=== PATIENT | male | born 1950 | race Hispanic/Latino ===

== ENCOUNTER 2016-12-11 09:03 | Observation (INO) | payer OTHER, MEDICAID ==
[2016-12-11 09:23] VITALS: BMI 26.6
[2016-12-11 10:19] LABS: BASO # 0.03 K/mm3 (0.0-2.0); BASO % 0.5 % (0.0-3.0); EOS # 0.2 (0.0-0.7); EOS % 3.7 % (1.5-5.0); GRAN # 3.05 (1.4-6.5); GRAN % 49.2 % (50.0-68.0); HEMOGLOBIN 14.3 gm/dL (14.0-18.0); LYMPH # 2.3 (1.2-3.4); LYMPH % 37.1 % (22.0-35.0); MEAN CELL VOLUME 96.5 fL (80.0-105.0); MEAN CORPUSCULAR HEMOGLOBIN 33.3 pg (25.0-35.0); MEAN CORPUSCULAR HGB CONC 34.5 g/dl (31.0-37.0); MEAN PLATELET VOLUME 9.9 fl (7.0-11.0); MONO # 0.6 (0.1-0.6); MONO % 9.5 % (1.0-6.0); PLATELET COUNT 170 10^3/uL (120.0-450.0); RED CELL DISTRIBUTION WIDTH 13.2 % (11.5-14.5); WHITE BLOOD COUNT 6.2 10^3/ul (4.5-11.0)
[2016-12-11 10:29] LABS: INR 1.04 (0.93-1.08); PARTIAL THROMBOPLASTIN TIME 29.2 Seconds (23.7-30.8); PROTHROMBIN TIME 11.2 Seconds (9.9-11.8)
[2016-12-11 10:29] LABS: ALB/GLOB RATIO 1.3 (1.1-1.8); ALBUMIN 4.2 g/dL (3.0-4.8); ALT/SGPT 40 U/L (7-56); AST/SGOT 31 U/L (15-59); BLOOD UREA NITROGEN 13 mg/dL (7-21); CALCIUM 8.8 mg/dL (8.4-10.5); GFR AFRICAN-AMERICAN > 60; GFR NON-AFRICAN AMERICAN > 60; LIPASE 76 U/L (23-300)
--- NOTE | 2016-12-11 10:55 | RAD ---
HISTORY: gi bleed COMPARISON: 10/18/2015 FINDINGS: LUNGS: No active pulmonary disease. PLEURA: No significant pleural effusion identified, no pneumothorax apparent. CARDIOVASCULAR: Normal. OSSEOUS STRUCTURES: No significant abnormalities. VISUALIZED UPPER ABDOMEN: Normal. OTHER FINDINGS: None. IMPRESSION: No active disease.
--- NOTE | 2016-12-11 11:53 | ED PDOC ---
Arrival/HPI - General Chief Complaint: GI Problem Time Seen by Provider: 12/11/16 09:56 Historian: Patient - History of Present Illness Narrative History of Present Illness (Text): 12/11/16 10:00 A 66 year old male, whose past medical history includes subdural hematoma, presents to the emergency department complaining of rectal bleeding. Patient reports he woke up about 6 hours ago in a puddle of liquid blood, which lasted for two more hours. Patient reports he saw PMD a week ago. Notes some lightheadedness but denies any chest pain, shortness of breath, headache, vision changes, abdominal pain or any other complaints at this time. PMD: Leila Symptom Onset: Sudden Symptom Course: Unchanged Activities at Onset: Rest Context: Home Past Medical History - Provider Review Nursing Documentation Reviewed: Yes - Infectious Disease Hx of Infectious Diseases: None - Cardiac Hx Hypertension: Yes - Pulmonary Hx Chronic Obstructive Pulmonary Disease (COPD): No - Neurological HX Cerebrovascular Accident: Yes Other/Comment: brain hemmorhage - HEENT Hx HEENT Disorder: No Hx Blind: No Hx Cataracts: Yes (bilateral removed) Hx Deafness: No Hx Difficulty Chewing: No Hx Epistaxis: No Hx Glaucoma: No Hx Macular Degeneration: No - Renal Hx Renal Failure: No - Endocrine/Metabolic Hx Diabetes Mellitus Type 1: No Hx Diabetes Mellitus Type 2: Yes Hx Hypothyroidism: No - Hematological/Oncological Hx Blood Disorders: No Hx AIDS: No Hx Anemia: No Hx Cancer: No Hx Chemotherapy: No Hx Cirrhosis: No Hx Hemophilia: No Hx Hepatitis A: No Hx Hepatitis B: No Hx Hepatitis C: No Hx Metastasis: No Hx Shingles: No Hx Sickle Cell Disease: No Hx Unexplained Bleeding: No - Integumentary Hx Dermatological Disorder: No Hx Basal Cell Carcinoma: No Hx Eczema: No Hx Melanoma: No Hx Psoriasis: No Hx Squamous Cell Carcinoma: No - Musculoskeletal/Rheumatological Hx Arthritis: No - Gastrointestinal Hx Gastrointestinal Disorders: No Hx Colostomy: No Hx Crohn's Disease: No Hx Diverticulitis: No Hx Gall Bladder Disease: No Hx Gastroesophageal Reflux: No Hx Gastrointestinal Ulcer: No Hx Ileostomy: No Hx Liver Failure: No Hx Pancreatitis: No HX Swallowing Problems: No - Genitourinary/Gynecological Hx Genitourinary Disorders: No Hx Hematuria: No Hx Incontinence: No Hx Prostate Problems: No Hx Sexually Transmitted Diseases: No Hx Urinary Tract Infection: No - Psychiatric Hx Psychophysiologic Disorder: No Hx Anxiety: Yes Hx Bipolar Disorder: No Hx Depression: No Hx Emotional Abuse: No Hx Hallucinations: No Hx Panic Disorder: No Hx Post Traumatic Stress Disorder: No Hx Psychosis: No Hx Physical Abuse: No Hx Schizophrenia: No Hx Sexual Abuse: No Hx Substance Use: No - Surgical History Hx Amputation: No Hx Appendectomy: No Hx Cardiac Catheterization: No Hx Cholecystectomy: No Hx Coronary Stent: No Hx Gastric Bypass Surgery: No Hx Hysterectomy: No Hx Joint Replacement: No Hx Kidney Transplant: No Hx Liver Transplant: No Hx Mastectomy: No Hx Musculoskeletal Surgery: Yes (right hand due to accident) Hx Open Heart Surgery: No Hx Orthopedic Surgery: Yes Hx Splenectomy: No Hx Valve Replacement: No Other/Comment: surgery for brain hemmorhage - Anesthesia Hx Anesthesia: Yes Hx Anesthesia Reactions: No Hx Malignant Hyperthermia: No - Suicidal Assessment Feels Threatened In Home Enviroment: No Family/Social History - Physician Review Nursing Documentation Reviewed: Yes Family/Social History: No Known Family HX Smoking Status: Heavy Smoker > 10 Cigarettes Daily Hx Alcohol Use: Yes (2/3 times week; 12 cans beer) Hx Substance Use: No Allergies/Home Meds Allergies/Adverse Reactions: Allergies No Known Allergies Allergy (Verified 12/11/16 09:22) Home Medications: Home Meds Medication Instructions Recorded Confirmed Amlodipine Besylate [Norvasc] 10 mg PO DAILY 07/14/15 12/11/16 Aspirin [Ecotrin] 81 mg PO DAILY 07/14/15 12/11/16 Enalapril Maleate 10 mg PO BID 07/14/15 12/11/16 Gabapentin [Neurontin] 600 mg PO TID 07/14/15 12/11/16 Meclizine [Meclizine*] 25 mg PO TID 07/14/15 12/11/16 traMADol [Ultram] 50 mg PO PRN PRN 07/14/15 12/11/16 Review of Systems - Physician Review All systems were reviewed & negative as marked: Yes - Review of Systems Constitutional: Other (lightheadedness) Eyes: absent: Vision Changes Respiratory: absent: SOB Cardiovascular: absent: Chest Pain Gastrointestinal: absent: Abdominal Pain Genitourinary Male: Other (Rectal bleeding) Neurological: absent: Headache Physical Exam - Physical Exam Narrative Physical Exam (Text): 12/11/16 11:53 Constitutional: No acute distress. Head: Normocephalic. Atraumatic. Well healed craniotomy scar R parietal, and L parietal, no erythema Eyes: PERRL. ENT: Moist mucous membranes. Neck: Supple. Cardiovascular: Regular rate. Chest: No tenderness. Respiratory: Clear to auscultation bilaterally. GI: Soft. Nontender. Nondistended. Back: No CVA tenderness. Musculoskeletal: No tenderness or swelling of extremities. Skin: No rash. Neurologic: Alert, no focal deficit. Rectal: external hemorrhoids, no active bleeding, no stool or gross blood on digital rectal exam, but guaiac still positive and dried blood in underwear. Vital Signs Reviewed: Yes Vital Signs Temp Pulse Resp BP Pulse Ox 12/11/16 11:46 76 18 157/75 H 98 12/11/16 10:53 82 143/87 12/11/16 09:17 98.7 F 79 18 183/92 H 98 Temperature: Afebrile Blood Pressure: Hypertensive Pulse: Regular Respiratory Rate: Normal Appearance: Positive for: Well-Appearing, Non-Toxic, Comfortable Pain Distress: None Mental Status: Positive for: Alert and Oriented X 3 Medical Decision Making ED Course and Treatment: 12/11/16 11:46 Impression: A 66 year old male with rectal bleeding. Plan: -- EKG -- chest xray -- labs -- Urinalysis -- Reassess and disposition Progress Notes: EKG: Ordered, reviewed, and independently interpreted the EKG. Rate : 80 BPM Rhythm : NSR Interpretation : No ST/T wave changes chest xray: Creator : Curt Solares MD 12/11/16 10:57 IMPRESSION: No active disease. Dr. Walker accepts patient to her service. Notified Dr. Rosado for GI consultation. Patient stable during ER stay, with significant rectal bleeding this morning, requires admission for further evaluation of bleeding source, close monitoring for acute blood loss. - Lab Interpretations Lab Results: 12/11/16 10:00 12/11/16 09:49 Lab Results 12/11/16 11:45: Urine Color Yellow, Urine Appearance Clear, Urine pH 6.0, Ur Specific [place] 1.025, Urine Protein Negative, Urine Glucose (UA) Negative, Urine Ketones Negative, Urine Blood Trace-intact H, Urine Nitrate Negative, Urine Bilirubin Negative, Urine Urobilinogen 0.2, Ur Leukocyte Esterase Negative , Urine RBC 1 - 3, Urine WBC 0 - 2, Ur Epithelial Cells 0 - 2 12/11/16 10:15: Blood Type O POSITIVE, Antibody Screen Negative, BBK History Checked Patient has bt 12/11/16 10:00: PT 11.2, INR 1.04, APTT 29.2 12/11/16 10:00: WBC 6.2, RBC 4.30, Hgb 14.3, Hct 41.5 L, MCV 96.5, MCH 33.3, MCHC 34.5, RDW 13.2, Plt Count 170, MPV 9.9, Gran % 49.2 L, Lymph % (Auto) 37.1 H, [place] % (Auto) 9.5 H, Eos % (Auto) 3.7, Baso % (Auto) 0.5, Gran # 3.05, Lymph # 2.3, [place] # 0.6, Eos # 0.2, Baso # 0.03 12/11/16 09:49: Sodium 139, Potassium 3.8, Chloride 105, Carbon Dioxide 22, Anion Gap 16, BUN 13, Creatinine 1.1, Est GFR ( Amer) > 60, Est GFR (Non- Af Amer) > 60, Random Glucose 101, Calcium 8.8, Total Bilirubin 0.6, AST 31, ALT 40, Alkaline Phosphatase 63, Total Protein 7.6, Albumin 4.2, Globulin 3.3, Albumin/Globulin Ratio 1.3, Lipase 76 I have reviewed the lab results: Yes - RAD Interpretation Radiology Orders: 12/11/16 10:08 CHEST PORTABLE [RAD] Stat - EKG Interpretation Interpreted by ED Physician: Yes Type: 12 lead EKG - Medication Orders Current Medication Orders: Discontinued Medications Lisinopril (Zestril) 20 mg PO STAT STA Stop: 12/11/16 10:50 Last Admin: 12/11/16 10:53 Dose: 20 mg - Scribe Statement The provider has reviewed the documentation as recorded by the [place] Provider Scribe Attestation: All medical record entries made by the [place] were at my direction and personally dictated by me. I have reviewed the chart and agree that the record accurately reflects my personal performance of the history, physical exam, medical decision making, and the department course for this patient. I have also personally directed, reviewed, and agree with the discharge instructions and disposition. Disposition/Present on Arrival - Present on Arrival Any Indicators Present on Arrival: No History of DVT/PE: No History of Uncontrolled Diabetes: No Urinary Catheter: No History of Decub. Ulcer: No History Surgical Site Infection Following: None - Disposition Have Diagnosis and Disposition been Completed?: Yes Diagnosis: GI bleed Disposition: HOSPITALIZED Disposition Time: 10:37 Patient Plan: Admission Condition: FAIR Referrals: Awa Dee MD [Primary Care Provider] - Follow up with primary
[2016-12-11 12:26] LABS: URINE BILIRUBIN NEGATIVE (NEGATIVE); URINE BLOOD TRACE-INTACT (NEGATIVE); URINE GLUCOSE (UA) NEGATIVE (NEGATIVE); URINE LEUKOCYTE ESTERASE NEGATIVE Leu/uL (NEGATIVE); URINE NITRATE NEGATIVE (NEGATIVE); URINE PROTEIN NEGATIVE mg/dL (<30 mg/dL); URINE UROBILINOGEN 0.2 E.U./dL (<1 E.U./dL)
[2016-12-11 12:42] LABS: URINE APPEARANCE CLEAR (CLEAR); URINE COLOR YELLOW (YELLOW)
[2016-12-11 12:45] LABS: URINE EPITHELIAL CELLS 0 - 2 /hpf (0-5); URINE WBC 0 - 2 /hpf (0-6)
[2016-12-11] MEDS ORDERED: Naloxone 0.4 mg/ml Inj (Adult) ONE (14:03)
--- NOTE | 2016-12-11 14:48 | CP.PCM.CON ---
<Lizet Eldridge - Last Filed: 12/11/16 14:57> History of Present Illness - History of Present Illness History of Present Illness: S&E in the ER, chart reviewed. Request for consult is for rectal bleeding. HPI: This is a 66 year old male with a history if subdural hematoma iw/ cranial surgery, HTN, CVA, colon polyps and PUD, come to the ER w/ complaints of blood per rectum, patient states that he woke up in a puddle of blood while in bed. He denies abdominal pain, no N/V, but felt lightheadedness. No SOB or chest [ pain. He does get acid reflux on occasion but depend on diet as well. He takes daily aspirin. Denies other NSAID use. He does admit to drinking 8-10 cans of beer [id number], he used to drink more scotch and water. His last EGD/ colon was 07/[address] Choe and found to have ulcer in the stomach, esophagus and duodenum. His gastric biopsy does show intestinal metaplasia, no HP, colon polyps was tubular adenoma. No c/o dysphasia or weight loss. PMH: Osteoarthritis, takes Tramadol,DM,HTN,CVA,peripheral neuropathy. subdural hematoma PSH: cranial surgery at 12 y.o, cataract surgery bilat FHX: noncontributory at this time Allergies: NKDA Social HX: beer 8-10 every other day, (+) smoke, denies drugs MEDS: reviewed as oer MAR ROS: systems reviewed with positive findings Past Patient History - Infectious Disease Hx of Infectious Diseases: None - Past Social History Smoking Status: Heavy Smoker > 10 Cigarettes Daily - CARDIAC Hx Hypertension: Yes - PULMONARY Hx Chronic Obstructive Pulmonary Disease (COPD): No - NEUROLOGICAL HX Cerebrovascular Accident: Yes Other/Comment: brain hemmorhage - HEENT Hx HEENT Problems: No Hx Blind: No Hx Cataracts: Yes (bilateral removed) Hx Deafness: No Hx Difficulty Chewing: No Hx Epistaxis: No Hx Glaucoma: No Hx Macular Degeneration: No - RENAL Hx Renal Failure: No - ENDOCRINE/METABOLIC Hx Diabetes Mellitus Type 1: No Hx Diabetes Mellitus Type 2: Yes Hx Hypothyroidism: No - HEMATOLOGICAL/ONCOLOGICAL Hx Blood Disorders: No Hx AIDS: No Hx Anemia: No Hx Cancer: No Hx Chemotherapy: No Hx Cirrhosis: No Hx Hemophilia: No Hx Hepatitis A: No Hx Hepatitis B: No Hx Hepatitis C: No Hx Metastesis: No Hx Shingles: No Hx Sickle Cell Disease: No Hx Unexplained Bleeding: No - INTEGUMENTARY Hx Dermatological Problems: No Hx Basil Cell: No Hx Eczema: No Hx Melanoma: No Hx Psoriasis: No Hx Squamous Cell: No - MUSCULOSKELETAL/RHEUMATOLOGICAL Hx Arthritis: No - GASTROINTESTINAL Hx Gastrointestinal Disorders: No Hx Colostomy: No Hx Crohn's Disease: No Hx Diverticulitis: No Hx Gall Bladder Disease: No Hx Gastroesophageal Reflux: No Hx Ileostomy: No Hx Liver Failure: No Hx Pancreatitis: No HX Swallowing Problems: No - GENITOURINARY/GYNECOLOGICAL Hx Genitourinary Disorders: No Hx Hematuria: No Hx Incontinence: No Hx Prostate Problems: No Hx Sexually Transmitted Disorders: No Hx Urinary Tract Infection: No - PSYCHIATRIC Hx Psychophysiologic Disorder: No Hx Anxiety: Yes Hx Bipolar Disorder: No Hx Depression: No Hx Emotional Abuse: No Hx Hallucinations: No Hx Panic Symptoms: No Hx Post Traumatic Stress Disorder: No Hx Psychosis: No Hx Physical Abuse: No Hx Schizophrenia: No Hx Sexual Abuse: No Hx Substance Use: No - SURGICAL HISTORY Hx Amputation: No Hx Appendectomy: No Hx Cardiac Catheterization: No Hx Cholecystectomy: No Hx Coronary Stent: No Hx Gastric Bypass Surgery: No Hx Hysterectomy: No Hx Joint Replacement: No Hx Kidney Transplant: No Hx Liver Transplant: No Hx Mastectomy: No Hx Musculoskeletal Surgery: Yes (right hand due to accident) Hx Open Heart Surgery: No Hx Orthopedic Surgery: Yes Hx Splenectomy: No Hx Valve Replacement: No Other/Comment: surgery for brain hemmorhage - ANESTHESIA Hx Anesthesia: Yes Hx Anesthesia Reactions: No Hx Malignant Hyperthermia: No Meds Allergies/Adverse Reactions: Allergies Allergy/AdvReac Type Severity Reaction Status Date / Time No Known Allergies Allergy Verified 12/11/16 09:22 - Medications Medications: Current Medications Polyethylene Glycol/Electrolytes (Golytely) 4,000 ml PO ONCE ONE Stop: 12/11/16 16:01 Physical Exam - Constitutional Appears: No Acute Distress - Head Exam Head Exam: NORMAL INSPECTION - Eye Exam Eye Exam: Normal appearance, PERRL. absent: Scleral icterus - ENT Exam ENT Exam: Mucous Membranes Moist - Neck Exam Neck exam: Positive for: Normal Inspection - Respiratory Exam Respiratory Exam: Clear to Auscultation Bilateral, NORMAL BREATHING PATTERN. absent: Respiratory Distress - Cardiovascular Exam Cardiovascular Exam: +S1, +S2 - GI/Abdominal Exam GI & Abdominal Exam: Normal Bowel Sounds, Soft. absent: Guarding, Rebound, Tenderness - Extremities Exam Extremities exam: Positive for: pedal pulses present. Negative for: calf tenderness, pedal edema - Neurological Exam Neurological exam: Alert, Oriented x3 - Skin Skin Exam: Dry, Warm Results - Vital Signs Recent Vital Signs: Last Vital Signs Temp 98.7 F 12/11/16 09:17 Pulse 78 12/11/16 14:17 Resp 19 12/11/16 14:17 BP 160/80 H 12/11/16 14:17 Pulse Ox 99 12/11/16 14:17 - Labs Result Diagrams: 12/11/16 10:00 12/11/16 09:49 Labs: Laboratory Results - last 24 hr 12/11/16 11:45 Urine Color Yellow Urine Appearance Clear Urine pH 6.0 Ur Specific [place] 1.025 Urine Protein Negative Urine Glucose (UA) Negative Urine Ketones Negative Urine Blood Trace-intact H Urine Nitrate Negative Urine Bilirubin Negative Urine Urobilinogen 0.2 Ur Leukocyte Esterase Negative Urine RBC 1 - 3 Urine WBC 0 - 2 Ur Epithelial Cells 0 - 2 Assessment & Plan - Assessment and Plan (Free Text) Assessment: ASSESSMENT: GI Bleed, R/O PUD, angiodysplasia, malignancy, diverticular bleed H/O PUD Chronic Alcohol use HTN DM H/O Colon polyps Gastric Intestinal metaplasia H/O Subdural hematoma w/cranial surgery PLAN: clear liquid start Protonix 40 mg IVP monitor H/H, for overt GIB plan for egd/colon 12/12/16 Golytle prep at 4 pm, see orders NPO 12 midnight except for meds labs in the am, bmp, cbc Thank you for this consult and for allowing us to participate in your patient care, will make further recommendations based upon clinical course. Seen and discussed with Dr. Rosado. <Jaguar Rosado V - Last Filed: 12/12/16 00:00> Meds - Medications Medications: Current Medications Amlodipine Besylate (Norvasc) 10 mg PO DAILY DOMINGO Bisacodyl (Dulcolax) 10 mg PO ONCE ONE Stop: 12/12/16 06:01 Gabapentin (Neurontin) 600 mg PO BID DOMINGO PRN Reason: Protocol Last Admin: 12/11/16 21:31 Dose: 600 mg Magnesium Citrate (Citrate Of Mag) 300 ml PO ONCE ONE Stop: 12/12/16 06:01 Nicotine (Nicoderm Cq) 1 patch TD DAILY DOMINGO Pantoprazole Sodium (Protonix Inj) 40 mg IVP DAILY DOMINGO Last Admin: 12/11/16 17:38 Dose: 40 mg Zolpidem Tartrate (Ambien) 5 mg PO HS PRN; Protocol PRN Reason: Insomnia Results - Vital Signs Recent Vital Signs: Last Vital Signs Temp 98.5 F 12/11/16 17:11 Pulse 67 12/11/16 20:22 Resp 20 12/11/16 17:11 BP 156/81 H 12/11/16 20:22 Pulse Ox 97 12/11/16 16:00 - Labs Result Diagrams: 12/11/16 16:45 12/11/16 09:49 Labs: Laboratory Results - last 24 hr 12/11/16 12/11/16 11:45 16:45 WBC 6.2 RBC 4.28 Hgb 14.0 Hct 41.3 L MCV 96.5 MCH 32.7 MCHC 33.9 RDW 13.0 Plt Count 169 MPV 10.1 Urine Color Yellow Urine Appearance Clear Urine pH 6.0 Ur Specific [place] 1.025 Urine Protein Negative Urine Glucose (UA) Negative Urine Ketones Negative Urine Blood Trace-intact H Urine Nitrate Negative Urine Bilirubin Negative Urine Urobilinogen 0.2 Ur Leukocyte Esterase Negative Urine RBC 1 - 3 Urine WBC 0 - 2 Ur Epithelial Cells 0 - 2 Attending/Attestation - Attestation I have personally seen and examined this patient.: Yes I have fully participated in the care of the patient.: Yes I have reviewed all pertinent clinical information: Yes Notes (Text): 12/12/16 00:00 this
[2016-12-11] MEDS ORDERED: Peg-Electrolyte Oral Soln 4L (Golytely) PO ONE (16:00)
[2016-12-11 17:00] LABS: MEAN CELL VOLUME 96.5 fL (80.0-105.0); MEAN CORPUSCULAR HEMOGLOBIN 32.7 pg (25.0-35.0); MEAN CORPUSCULAR HGB CONC 33.9 g/dl (31.0-37.0); MEAN PLATELET VOLUME 10.1 fl (7.0-11.0); RBC 4.28 10^6/uL (3.5-6.1); WHITE BLOOD COUNT 6.2 10^3/ul (4.5-11.0)
--- NOTE | 2016-12-11 17:37 | CARD ---
APPROVED REPORT EKG Measurement Heart [id number] <Conclusion> Normal sinus rhythm Moderate voltage criteria for LVH, may be normal variant Borderline ECG
[2016-12-11] MEDS ORDERED: Magnesium Citrate Oral SOL (300 ml) PO ONE (18:05)
[2016-12-11] MEDS ORDERED: Bisacodyl 5mg EC Tab PO ONE (18:05)
--- NOTE | 2016-12-11 22:44 | CP.PCM.HP ---
History of Present Illness - History of Present Illness History of Present Illness: 66 yo male with history of hypertension, COPD, history of subdural hematoma presented to ER with complaint of sudden onset of painless rectal bleeding. The patient states that woke up in pool of blood coming from anal area. He denied abdominal pain, diarrhea, constipation, nausea or vomiting. He has history of colon polyps , last colonoscopy in 2016. He takes ASA 81 mg daily. Present on Admission - Present on Admission Any Indicators Present on Admission: No History of DVT/PE: No History of Uncontrolled Diabetes: No Urinary Catheter: No Decubitus Ulcer Present: No Review of Systems - Constitutional Constitutional: absent: As Per HPI, Anorexia, Chills, Daytime Sleepiness, Excessive Sweating, Fatigue, Fever, Frequent Falls, Headache, Increased Appetite , Lethargy, Malaise, Night Sweats, Snoring, Sleep Apnea, Weight Gain, Weight Loss, Weakness, Other - EENT Eyes: Requires Corrective Lenses. absent: As Per HPI, Blind Spots, Blurred Vision, Change in Vision, Decreased Night Vision, Diplopia, Discharge, Dry Eye, Exophthalmos, Floaters, Irritation, Itchy Eyes, Loss of Peripheral Vision, Pain , Photophobia, Sees Flashes, Spots in Vision, Tunnel Vision, Other Visual Disturbances, Loss of Vision, Other Ears: Decreased Hearing, Dizziness Nose/Mouth/Throat: absent: As Per HPI, Epistaxis, Nasal Congestion, Nasal Discharge, Nasal Obstruction, Nasal Trauma, Nose Pain, Post Nasal Drip, Sinus Pain, Sinus Pressure, Bleeding Gums, Change in Voice, Dental Pain, Dry Mouth, Dysphagia, Halitosis, Hoarsness, Lip Swelling, Mouth Lesions, Mouth Pain, Odynophagia, Sore Throat, Throat Swelling, Tongue Swelling, Facial Pain, Neck Pain, Neck Mass, Other - Cardiovascular Cardiovascular: absent: As Per HPI, Acrocyanosis, Chest Pain, Chest Pain at Rest , Chest Pain with Activity, Claudication, Diaphoresis, Dyspnea, Dyspnea on Exertion, Edema, Irregular Heart Rhythm, Pain Radiating to Arm/Neck/Jaw, Leg Edema, Leg Ulcers, Lightheadedness, Orthopnea, Palpitations, Paroxysmal Nocturnal Dyspnea, Pedal Edema, Radiating Pain, Rapid Heart Rate, Slow Heart Rate, Syncope, Other - Respiratory Respiratory: Cough, Dyspnea on Exertion. absent: As Per HPI, Dyspnea, Hemoptysis, Wheezing, Snoring, Stridor, Pain on Inspiration, Chest Congestion, Excessive Mucous Production, Change in Mucous Color, Pain with Coughing, Other - Gastrointestinal Gastrointestinal: absent: As Per HPI, Abdominal Pain, Belching, Bloating, Change in Bowel Habits, Change in Stool Character, Coffee Ground Emesis, Constipation, Cramping, Diarrhea, Dyspepsia, Dysphagia, Early Satiety, Excessive Flatus, Fecal Incontinence, Heartburn, Hematemesis, Hematochezia, Loose Stools, Melena, Nausea, Odynophagia, Temesmus, Vomiting, Other - Genitourinary Genitourinary: absent: As Per HPI, Change in Urinary Stream, Difficulty Urinating, Dysuria, Flank Pain, Hematuria, Pyuria, Nocturia, Urinary Incontinence, Urinary Frequency, Urinary Hesitance, Urinary Urgency, Voiding Freq/Small Amts, Freq UTI, Hx Renal/Bladder Calculi, Hx /Renal Surgery, Bladder Distension, Other - Musculoskeletal Musculoskeletal: Arthralgias, Muscle Cramps, Numbness, Tingling. absent: As Per HPI, Abnormal Gait, Atrophy, Back Pain, Deformity, Joint Swelling, Limited Range of Motion, Loss of Height, Muscle Weakness, Myalgias, Neck Pain, Radiating Pain into Limb, Stiffness, Other - Integumentary Integumentary: absent: As Per HPI, Acne, Alopecia, Bleeding Lesions, Change in Hair, Change in Nails, Change in Pigmentation, Changing Lesions, Dry Skin, Erythema, Furuncle, Hirsutism, Lesions, New Lesions, Non-Healing Lesions, Photosensitivity, Pruritus, Rash, Skin Pain, Skin Ulcer, Sores, Striae, Swelling , Unusual Bruising, Wounds, Jaundice, Other - Neurological Neurological: Dizziness, Numbness, Restless Legs, Vertigo. absent: As Per HPI, Abnormal Gait, Abnormal Hearing, Abnormal Movements, Abnormal Speech, Behavioral Changes, Burning Sensations, Confusion, Convulsions, Disequilibrium, Focal Weakness, Frequent Falls, Headaches, Lack of Coordination, Loss of Vision , Memory Loss, Paresthesias, Radicular Pain, Sensory Deficit, Syncope, Tingling , Tremor, Weakness, Other Visual Disturbances, Other - Psychiatric Psychiatric: absent: As Per HPI, Abnormal Sleep Pattern, Anhedonia, Anxiety, Auditory Hallucinations, Behavioral Changes, Change in Appetite, Change in Libido, Confusion, Depression, Difficulty Concentrating, Hallucinations, Homicidal Ideation, Hopelessness, Irritability, Memory Loss, Mood Swings, Panic Attacks, Paranoia, Suicidal Ideation, Visual Hallucinations, Tactile Hallucinations, Other - Endocrine Endocrine: absent: As Per HPI, Change in Body Appearance, Change in Libido, Cold Intolorance, Deepening of Voice, Excessive Sweating, Fatigue, Flushing, Heat Intolorance, Increase in Ring/Shoe/Hat Size, Palpitations, Polydipsia, Polyphagia, Polyuria, Other - Hematologic/Lymphatic Hematologic: absent: As Per HPI, Easy Bleeding, Easy Bruising, Lymphadenopathy, Other Past Patient History - Infectious Disease Hx of Infectious Diseases: None - Tetanus Immunizations Tetanus Immunization: Unknown - Past Medical History & Family History Past Medical History?: Yes - Past Social History Smoking Status: Heavy Smoker > 10 Cigarettes Daily Chewing Tobacco Use: No Cigar Use: No Occupation: retired Alcohol: < 2 Drinks/Day Drugs: Denies Home Situation {Lives}: With Family - CARDIAC Hx Cardiac Disorders: No Hx Angina: No Hx Atrial Fibrillation: No Hx Cardia Arrhythmia: No Hx Circulatory Problems: No Hx Congestive Heart Failure: No Hx Heart Attack: No Hx Heart Murmur: No Hx Heart Transplant: No Hx Hypercholesterolemia: Yes Hx Hypertension: Yes Hx Hypotension: No Hx Internal Defibrillator: No Hx Mitral Valve Prolapse: No Hx Pacemaker: No Hx Peripheral Edema: No Hx Peripheral Vascular Disease: No - PULMONARY Hx Respiratory Disorders: Yes Hx Asthma: No Hx Bronchitis: No Hx Chronic Obstructive Pulmonary Disease (COPD): Yes Hx Emphysema: Yes Hx Lung Cancer: No Hx Pneumonia: No Hx Pulmonary Edema: No Hx Pulmonary Embolism: No Hx Respiratory Aspiration: No Hx Respiratory Tract Infection: No Hx Sleep Apnea: No Hx Tuberculosis: No - NEUROLOGICAL Hx Alzheimer's Disease: No HX Cerebrovascular Accident: Yes Hx Dementia: No Hx Dizziness: Yes Hx Meningitis: No Hx Migraine: No Hx Multiple Sclerosis: No Hx Paralysis: No Hx Parkinson's Disease: No Hx Seizures: No Hx Syncope: No Hx Transient Ischemic Attacks (TIA): No Hx Vertigo: Yes Other/Comment: brain hemmorhage - HEENT Hx HEENT Problems: No Hx Blind: No Hx Cataracts: Yes (bilateral removed) Hx Deafness: No Hx Difficulty Chewing: No Hx Epistaxis: No Hx Glaucoma: No Hx Macular Degeneration: No Hx Sinusitis: No - RENAL Hx Chronic Kidney Disease: No Hx Dialysis: No Hx Kidney Stones: No Hx Renal Failure: No - ENDOCRINE/METABOLIC Hx Diabetes Mellitus Type 2: Yes (Borderline) - HEMATOLOGICAL/ONCOLOGICAL Hx Blood Disorders: No Hx AIDS: No Hx Anemia: No Hx Cancer: No Hx Chemotherapy: No Hx Cirrhosis: No Hx Hemophilia: No Hx Hepatitis A: No Hx Hepatitis B: No Hx Hepatitis C: No Hx Metastesis: No Hx Shingles: No Hx Sickle Cell Disease: No Hx Unexplained Bleeding: No - INTEGUMENTARY Hx Dermatological Problems: No Hx Basil Cell: No Hx Eczema: No Hx Melanoma: No Hx Psoriasis: No Hx Squamous Cell: No - MUSCULOSKELETAL/RHEUMATOLOGICAL Hx Back Pain: Yes Hx Degenerative Joint Disease: Yes Hx Falls: No Hx Gout: No Hx Herniated Disk: No Hx Myasthenia Gravis: No Hx Osteoarthritis: No Hx Osteomyelitis: No Hx Osteoporosis: No Hx Rhabdomyolysis: No Hx Rheumatoid Arthritis: No Hx Spinal Stenosis: No Hx Unsteady Gait: No - GASTROINTESTINAL Hx Gastrointestinal Disorders: No Hx Clostridium Difficile: No Hx Colitis: No Hx Colostomy: No Hx Constipation: No Hx Crohn's Disease: No Hx Diverticulitis: No Hx Gall Bladder Disease: No Hx Gastroesophageal Reflux: No Hx Hemorrhoids: Yes Hx Ileostomy: No Hx Irritable Bowel: No Hx Liver Failure: No Hx Pancreatitis: No HX Swallowing Problems: No Hx Ulcer: Yes Hx Vomiting: No - GENITOURINARY/GYNECOLOGICAL Hx Genitourinary Disorders: No Hx Hematuria: No Hx Incontinence: No Hx Prostate Problems: No Hx Sexually Transmitted Disorders: No Hx Urinary Tract Infection: No - PSYCHIATRIC Hx Anxiety: Yes Hx Substance Use: No - SURGICAL HISTORY Hx Surgeries: Yes Hx Musculoskeletal Surgery: Yes (right hand due to accident) Hx Orthopedic Surgery: Yes Other/Comment: surgery for brain hemmorhage, metal plate in skull - ANESTHESIA Hx Anesthesia: Yes Hx Anesthesia Reactions: No Hx Malignant Hyperthermia: No Meds Allergies/Adverse Reactions: Allergies Allergy/AdvReac Type Severity Reaction Status Date / Time No Known Allergies Allergy Verified 12/11/16 09:22 Physical Exam - Constitutional Appears: No Acute Distress - Head Exam Head Exam: ATRAUMATIC, NORMOCEPHALIC - Eye Exam Eye Exam: Normal appearance Pupil Exam: NORMAL ACCOMODATION, PERRL - ENT Exam ENT Exam: Mucous Membranes Moist, Normal Exam - Neck Exam Neck exam: Positive for: Full Rom, Normal Inspection. Negative for: Lymphadenopathy, Meningismus, Tenderness, Thyromegaly - Respiratory Exam Respiratory Exam: Clear to Auscultation Bilateral, NORMAL BREATHING PATTERN. absent: Accessory Muscle Use, Chest Wall Tenderness, Decreased Breath Sounds, Prolonged Expiratory Phase, Rales, Rhonchi, Wheezes, Respiratory Distress, Stridor - Cardiovascular Exam Cardiovascular Exam: REGULAR RHYTHM. absent: Bradycardia, Tachycardia, Clicks, Diastolic murmur, Gallop, Irregular Rhythm, JVD, RRR, Rubs, +S1, +S2, +S4, Systolic Murmur - GI/Abdominal Exam GI & Abdominal Exam: Normal Bowel Sounds, Soft. absent: Bruit, Diminished Bowel Sounds, Distended, Firm, Guarding, Hernia, Hyperactive Bowel Sounds, Hypoactive Bowel Sounds, Mass, Organomegaly, Pulsatile Mass, Rebound, Rigid, Tenderness - Rectal Exam Rectal Exam: NORMAL INSPECTION - Extremities Exam Extremities exam: Positive for: full ROM, normal inspection. Negative for: calf tenderness, joint swelling, normal capillary refill, pedal edema, tenderness, pedal pulses present - Neurological Exam Neurological exam: Alert, CN II-XII Intact, Normal Gait, Oriented x3, Reflexes Normal - Psychiatric Exam Psychiatric exam: Normal Affect, Normal Mood Results - Vital Signs Recent Vital Signs: Last Vital Signs Temp 98.5 F 12/11/16 17:11 Pulse 67 12/11/16 20:22 Resp 20 12/11/16 17:11 BP 156/81 H 12/11/16 20:22 Pulse Ox 97 12/11/16 16:00 - Labs Result Diagrams: 12/11/16 16:45 12/11/16 09:49 Labs: Laboratory Results - last 24 hr 12/11/16 12/11/16 11:45 16:45 WBC 6.2 RBC 4.28 Hgb 14.0 Hct 41.3 L MCV 96.5 MCH 32.7 MCHC 33.9 RDW 13.0 Plt Count 169 MPV 10.1 Urine Color Yellow Urine Appearance Clear Urine pH 6.0 Ur Specific Blum 1.025 Urine Protein Negative Urine Glucose (UA) Negative Urine Ketones Negative Urine Blood Trace-intact H Urine Nitrate Negative Urine Bilirubin Negative Urine Urobilinogen 0.2 Ur Leukocyte Esterase Negative Urine RBC 1 - 3 Urine WBC 0 - 2 Ur Epithelial Cells 0 - 2 Assessment & Plan (1) Lower GI bleeding Status: Acute Onset Date: ~12/11/16 (2) Hypertension Status: Chronic - Assessment and Plan (Free Text) Plan: Admit for observation. H/H monitoring. GI evaluation, discussed plans for colonoscopy in AM. Clear liquid diet. Resume chronic antihypertensive medications. - Date & Time Date: 12/11/16 Time: 19:30
[2016-12-12] MEDS ORDERED: Bisacodyl 5mg EC Tab PO ONE (06:00)
[2016-12-12] MEDS ORDERED: Magnesium Citrate Oral SOL (300 ml) PO ONE (06:00)
[2016-12-12 08:17] LABS: HEMOGLOBIN 14.7 gm/dL (14.0-18.0); MEAN CELL VOLUME 96.4 fL (80.0-105.0); MEAN CORPUSCULAR HGB CONC 34.2 g/dl (31.0-37.0); MEAN PLATELET VOLUME 10.2 fl (7.0-11.0); RBC 4.46 10^6/uL (3.5-6.1); RED CELL DISTRIBUTION WIDTH 12.9 % (11.5-14.5); WHITE BLOOD COUNT 6.5 10^3/ul (4.5-11.0)
[2016-12-12 08:40] LABS: ALB/GLOB RATIO 1.4 (1.1-1.8); ALBUMIN 4.2 g/dL (3.0-4.8); ALT/SGPT 40 U/L (7-56); AST/SGOT 34 U/L (15-59); BLOOD UREA NITROGEN 10 mg/dL (7-21); CALCIUM 9.3 mg/dL (8.4-10.5); GFR AFRICAN-AMERICAN > 60; GFR NON-AFRICAN AMERICAN > 60
--- NOTE | 2016-12-12 09:30 | CP.PCM.PN ---
Subjective - Date & Time of Evaluation Date of Evaluation: 12/12/16 Time of Evaluation: 09:30 - Subjective Subjective: The patient feels well, reported small amount of blood with bowel movement . He denies rectal pain , abdominal pain. Laboratory tests are stable with Hg 14.6 this AM. The patient is scheduled for colonoscopy today. Objective - Vital Signs/Intake and Output Vital Signs (last 24 hours): Temp Pulse Resp BP Pulse Ox 97.9 F 75 20 103/80 92 L 12/12/16 08:32 12/12/16 08:32 12/12/16 08:32 12/12/16 08:32 12/12/16 08:32 Intake and Output: 12/12/16 12/12/16 06:59 18:59 Intake Total 180 120 Output Total 0 Balance 180 120 - Medications Medications: Current Medications Amlodipine Besylate (Norvasc) 10 mg PO DAILY DOMINGO Gabapentin (Neurontin) 600 mg PO BID DOMINGO PRN Reason: Protocol Last Admin: 12/11/16 21:31 Dose: 600 mg Nicotine (Nicoderm Cq) 1 patch TD DAILY DOMINGO Pantoprazole Sodium (Protonix Inj) 40 mg IVP DAILY DOMINGO Last Admin: 12/11/16 17:38 Dose: 40 mg Zolpidem Tartrate (Ambien) 5 mg PO HS PRN; Protocol PRN Reason: Insomnia - Labs Labs: 12/12/16 07:00 12/12/16 07:00 PT 11.2 Seconds (9.9-11.8) 12/11/16 10:00 INR 1.04 (0.93-1.08) 12/11/16 10:00 APTT 29.2 Seconds (23.7-30.8) 12/11/16 10:00 - Constitutional Appears: Well - Head Exam Head Exam: ATRAUMATIC, NORMAL INSPECTION - Eye Exam Eye Exam: Normal appearance Pupil Exam: NORMAL ACCOMODATION - ENT Exam ENT Exam: Mucous Membranes Dry - Neck Exam Neck Exam: Full ROM - Respiratory Exam Respiratory Exam: Clear to Ausculation Bilateral - Cardiovascular Exam Cardiovascular Exam: REGULAR RHYTHM - GI/Abdominal Exam GI & Abdominal Exam: Soft, Normal Bowel Sounds - Extremities Exam Extremities Exam: Full ROM, Normal Inspection - Neurological Exam Neurological Exam: Alert, Awake, Normal Gait, Oriented x3 - Skin Skin Exam: Normal Color, Warm Assessment and Plan (1) Lower GI bleeding Status: Acute (2) Hypertension Status: Chronic (3) Peripheral neuropathy Status: Acute (4) Nicotine dependence Status: Acute - Assessment and Plan (Free Text) Plan: Close monitoring, for colonscopy today .
[2016-12-12] MEDS ORDERED: Propofol 10 mg/ml Inj (20 ML) ONE (16:48)
[2016-12-12] MEDS ORDERED: Sodium Chloride 0.9% 1,000 ML IV SCH (17:45)
[2016-12-12 17:54] VITALS: RESP 16; TEMP 98.4; O2SAT 98
[2016-12-12 18:11] VITALS: BP 150/77; PULSE 65
--- NOTE | 2016-12-12 19:49 | CP.PCM.DIS ---
Provider - Provider Date of Admission: 12/11/16 10:49 Attending physician: Awa Walker MD Primary care physician: Awa Walker MD Time Spent in preparation of Discharge (in minutes): 30 Diagnosis - Discharge Diagnosis (1) Gastric ulcer Status: Acute (2) Internal hemorrhoids Status: Chronic (3) Lower GI bleeding Status: Resolved Onset Date: ~12/11/16 (4) Hypertension Status: Chronic (5) Peripheral neuropathy Status: Chronic (6) Nicotine dependence Status: Chronic Hospital Course - Lab Results Lab Results: Micro Results 12/11/16 11:45 Urine,Clean Catch Urine Culture - Final No Growth (<1,000 CFU/ML) Most Recent Lab Values WBC 6.5 10^3/ul (4.5-11.0) 12/12/16 07:00 RBC 4.46 10^6/uL (3.5-6.1) 12/12/16 07:00 Hgb 14.7 gm/dL (14.0-18.0) 12/12/16 07:00 Hct 43.0 % (42.0-52.0) 12/12/16 07:00 MCV 96.4 fL (80.0-105.0) 12/12/16 07:00 MCH 33.0 pg (25.0-35.0) 12/12/16 07:00 MCHC 34.2 g/dl (31.0-37.0) 12/12/16 07:00 RDW 12.9 % (11.5-14.5) 12/12/16 07:00 Plt Count 178 10^3/uL (120.0-450.0) 12/12/16 07:00 MPV 10.2 fl (7.0-11.0) 12/12/16 07:00 Gran % 49.2 % (50.0-68.0) L 12/11/16 10:00 Lymph % (Auto) 37.1 % (22.0-35.0) H 12/11/16 10:00 Bandera % (Auto) 9.5 % (1.0-6.0) H 12/11/16 10:00 Eos % (Auto) 3.7 % (1.5-5.0) 12/11/16 10:00 Baso % (Auto) 0.5 % (0.0-3.0) 12/11/16 10:00 Gran # 3.05 (1.4-6.5) 12/11/16 10:00 Lymph # 2.3 (1.2-3.4) 12/11/16 10:00 Bandera # 0.6 (0.1-0.6) 12/11/16 10:00 Eos # 0.2 (0.0-0.7) 12/11/16 10:00 Baso # 0.03 K/mm3 (0.0-2.0) 12/11/16 10:00 PT 11.2 Seconds (9.9-11.8) 12/11/16 10:00 INR 1.04 (0.93-1.08) 12/11/16 10:00 APTT 29.2 Seconds (23.7-30.8) 12/11/16 10:00 Sodium 138 mmol/L (132-148) 12/12/16 07:00 Potassium 3.7 mmol/L (3.6-5.0) 12/12/16 07:00 Chloride 101 mmol/L (95-110) 12/12/16 07:00 Carbon Dioxide 26 mmol/L (21-33) 12/12/16 07:00 Anion Gap 15 (10-20) 12/12/16 07:00 BUN 10 mg/dL (7-21) 12/12/16 07:00 Creatinine 1.1 mg/dL (0.5-1.4) 12/12/16 07:00 Est GFR ( Amer) > 60 12/12/16 07:00 Est GFR (Non-Af Amer) > 60 12/12/16 07:00 Random Glucose 110 mg/dL (70-110) 12/12/16 07:00 Calcium 9.3 mg/dL (8.4-10.5) 12/12/16 07:00 Total Bilirubin 0.8 mg/dL (0.2-1.3) 12/12/16 07:00 AST 34 U/L (15-59) 12/12/16 07:00 ALT 40 U/L (7-56) 12/12/16 07:00 Alkaline Phosphatase 66 U/L (38-133) 12/12/16 07:00 Total Protein 7.4 g/dL (5.8-8.3) 12/12/16 07:00 Albumin 4.2 g/dL (3.0-4.8) 12/12/16 07:00 Globulin 3.1 gm/dL 12/12/16 07:00 Albumin/Globulin Ratio 1.4 (1.1-1.8) 12/12/16 07:00 Lipase 76 U/L (23-300) 12/11/16 09:49 Urine Color Yellow (YELLOW) 12/11/16 11:45 Urine Appearance Clear (CLEAR) 12/11/16 11:45 Urine pH 6.0 (4.7-8.0) 12/11/16 11:45 Ur Specific Marshall 1.025 (1.005-1.035) 12/11/16 11:45 Urine Protein Negative mg/dL (<30 mg/dL) 12/11/16 11:45 Urine Glucose (UA) Negative mg/dL (NEGATIVE) 12/11/16 11:45 Urine Ketones Negative mg/dL (NEGATIVE) 12/11/16 11:45 Urine Blood Trace-intact (NEGATIVE) H 12/11/16 11:45 Urine Nitrate Negative (NEGATIVE) 12/11/16 11:45 Urine Bilirubin Negative (NEGATIVE) 12/11/16 11:45 Urine Urobilinogen 0.2 E.U./dL (<1 E.U./dL) 12/11/16 11:45 Ur Leukocyte Esterase Negative Jasiel/uL (NEGATIVE) 12/11/16 11:45 Urine RBC 1 - 3 /hpf (0-2) 12/11/16 11:45 Urine WBC 0 - 2 /hpf (0-6) 12/11/16 11:45 Ur Epithelial Cells 0 - 2 /hpf (0-5) 12/11/16 11:45 Blood Type O POSITIVE 12/11/16 10:15 Antibody Screen Negative 12/11/16 10:15 BBK History Checked Patient has bt 12/11/16 10:15 - Hospital Course Hospital Course: 66 yo male with history of hypertension, hyperlipidemia admitted for new onset of rectal bleeding. Laboratory tests showed normal hemoglobin . Colonoscopy showed small hemorrhoids, diverticula. Upper endoscopy showed small gastric ulcers. The patient takes small dose of ASA daily. His condition during hospitalization remained stable, repeated hemoglobin was normal . Discharge Exam - Head Exam Head Exam: ATRAUMATIC, NORMAL INSPECTION - Eye Exam Eye Exam: Normal appearance, PERRL Pupil Exam: NORMAL ACCOMODATION - ENT Exam ENT Exam: Mucous Membranes Moist - Neck Exam Neck exam: Full Rom - Respiratory Exam Respiratory Exam: Clear to PA & Lateral - Cardiovascular Exam Cardiovascular Exam: REGULAR RHYTHM, +S1, +S2 - GI/Abdominal Exam GI & Abdominal Exam: Normal Bowel Sounds, Soft - Extremities Exam Extremities exam: full ROM - Neurological Exam Neurological exam: Alert, CN II-XII Intact, Normal Gait, Oriented x3, Reflexes Normal - Skin Skin Exam: Normal Color, Warm Discharge Plan - Follow Up Plan Condition: GOOD Patient education suggested?: Yes Instructions: Diet for Ulcers and Gastritis (GEN), Omeprazole (By mouth) Referrals: Awa Dee MD [Primary Care Provider] -
== END 2016-12-12 20:58 | disposition home or self-care (01) ==
LOC: ED 09:03 → ERH 10:49 → INTOOBSV 10:49 → 3RNO 14:41
PROVIDERS: ADMIT Family Medicine; ATTEND Family Medicine
DX: K92.2 Gastrointestinal hemorrhage, unspecified (principal); K25.9 Gastric ulcer, unspecified as acute or chronic, without hemorrhage or perforation; K21.0 Gastro-esophageal reflux disease with esophagitis; K26.9 Duodenal ulcer, unspecified as acute or chronic, without hemorrhage or perforation; K22.70 Barrett's esophagus without dysplasia; K64.8 Other hemorrhoids; K57.30 Diverticulosis of large intestine without perforation or abscess without bleeding; D12.2 Benign neoplasm of ascending colon; I10 Essential (primary) hypertension; E11.42 Type 2 diabetes mellitus with diabetic polyneuropathy; E78.5 Hyperlipidemia, unspecified; J44.9 Chronic obstructive pulmonary disease, unspecified; Z79.82 Long term (current) use of aspirin; Z86.010 Personal history of colon polyps; Z86.73 Personal history of transient ischemic attack (TIA), and cerebral infarction without residual deficits; Z87.11 Personal history of peptic ulcer disease; F17.210 Nicotine dependence, cigarettes, uncomplicated; K64.4 Residual hemorrhoidal skin tags; M19.90 Unspecified osteoarthritis, unspecified site; Z98.42 Cataract extraction status, left eye; Z98.41 Cataract extraction status, right eye

== ENCOUNTER 2018-09-15 16:59 | Emergency (ER) | payer OTHER ==
[2018-09-15 17:00] VITALS: BMI 26.6
[2018-09-15 17:15] VITALS: RESP 18
--- NOTE | 2018-09-15 17:21 | ED PDOC ---
Arrival/HPI - General Historian: Patient - History of Present Illness Narrative History of Present Illness (Text): 09/15/18 17:21 Patient is a 66 yo M with PMH HTN, COPD, cataracts, subdural hematoma presenting to ED with complaint of something in his L eye. He says it began yesterday morning when he woke up. He denies any trauma to the eye or head, any falls, or any particles entering his eyes. He claims it feels like a small piece of glass. He reports associated pain and burning which is mild. He denies headache, blurry vision, chest pain, shortness of breath, abdominal pain, nausea, vomiting, diarrhea. He denies prior history of this sensation. <Eva Cid - Last Filed: 09/15/18 17:41> <German Terry - Last Filed: 09/15/18 18:26> - General Chief Complaint: Eye Problem Time Seen by Provider: 09/15/18 17:01 Past Medical History - Infectious Disease Hx of Infectious Diseases: None - Tetanus Immunization Tetanus Immunization: Unknown - Cardiac Hx Hypertension: Yes - Pulmonary Hx Respiratory Disorders: Yes Hx Chronic Obstructive Pulmonary Disease (COPD): Yes Hx Emphysema: Yes - Neurological HX Cerebrovascular Accident: Yes Hx Dizziness: Yes Hx Vertigo: Yes Other/Comment: brain hemmorhage - HEENT Hx Cataracts: Yes (bilateral removed) - Renal Hx Renal Disorder: No Hx Dialysis: No Hx Kidney Stones: No Hx Renal Failure: No - Endocrine/Metabolic Hx Diabetes Mellitus Type 2: Yes (Borderline) - Hematological/Oncological Hx Blood Transfusions: No Hx Blood Transfusion Reaction: No - Integumentary Hx Dermatological Disorder: No Hx Basal Cell Carcinoma: No Hx Eczema: No Hx Melanoma: No Hx Psoriasis: No Hx Squamous Cell Carcinoma: No - Musculoskeletal/Rheumatological Hx Back Pain: Yes Hx Degenerative Joint Disease: Yes - Gastrointestinal Hx Hemorrhoids: Yes - Genitourinary/Gynecological Hx Genitourinary Disorders: No Hx Hematuria: No Hx Incontinence: No Hx Prostate Problems: No Hx Sexually Transmitted Diseases: No Hx Urinary Tract Infection: No - Psychiatric Hx Anxiety: Yes Hx Substance Use: No - Surgical History Hx Musculoskeletal Surgery: Yes (right hand due to accident) Hx Orthopedic Surgery: Yes Other/Comment: surgery for brain hemmorhage, metal plate in skull - Anesthesia Hx Anesthesia Reactions: No Hx Malignant Hyperthermia: No - Suicidal Assessment Feels Threatened In Home Enviroment: No <StanceceliaRosajosefina - Last Filed: 09/15/18 17:41> Family/Social History Family/Social History: No Known Family HX Smoking Status: Heavy Smoker > 10 Cigarettes Daily Hx Alcohol Use: Yes (6 cans every other day) Hx Substance Use: No <Eva Cid - Last Filed: 09/15/18 17:41> Allergies/Home Meds <StanEva rai - Last Filed: 09/15/18 17:41> <BosompGerman tomas - Last Filed: 09/15/18 18:26> Allergies/Adverse Reactions: Allergies No Known Allergies Allergy (Verified 12/11/16 09:22) Home Medications: Home Meds Medication Instructions Recorded Confirmed Amlodipine Besylate [Norvasc] 10 mg PO DAILY 07/14/15 12/11/16 Aspirin [Ecotrin] 81 mg PO DAILY 07/14/15 12/11/16 Enalapril Maleate 10 mg PO DAILY 07/14/15 12/11/16 Gabapentin [Neurontin] 600 mg PO BID 07/14/15 12/11/16 Meclizine [Meclizine*] 25 mg PO TID 07/14/15 12/11/16 traMADol [Ultram] 50 mg PO PRN PRN 07/14/15 12/11/16 Atorvastatin [Lipitor] 10 mg PO DIN 12/11/16 12/11/16 tiZANidine [Zanaflex] 2 mg PO DAILY 12/11/16 12/11/16 Review of Systems - Review of Systems Constitutional: Normal. absent: Fevers Eyes: Eye Pain. absent: Vision Changes ENT: Normal Respiratory: Normal Cardiovascular: Normal Gastrointestinal: Normal Genitourinary Male: Normal Musculoskeletal: Normal Skin: Normal Neurological: Normal Endocrine: Normal Hemo/Lymphatic: Normal Psychiatric: Normal <Eva Cid - Last Filed: 09/15/18 17:41> Physical Exam Vital Signs Reviewed: Yes Vital Signs Temp Pulse Resp BP Pulse Ox 09/15/18 17:05 98.7 F 78 18 148/73 98 Temperature: Afebrile Blood Pressure: Normal Pulse: Regular Respiratory Rate: Normal Appearance: Positive for: Well-Appearing Pain Distress: None Mental Status: Positive for: Alert and Oriented X 3 - Systems Exam Head: Present: Atraumatic, Normocephalic Pupils: Present: PERRL Conjunctiva: Present: Injected Mouth: Present: Moist Mucous Membranes Neck: Present: Normal Range of Motion Respiratory/Chest: Present: Clear to Auscultation, Good Air Exchange. No: Respiratory Distress, Accessory Muscle Use Cardiovascular: Present: Regular Rate and Rhythm, Normal S1, S2. No: Murmurs, Rub, Gallop Abdomen: Present: Normal Bowel Sounds, Peritoneal Signs. No: Tenderness, Distention Upper Extremity: Present: Normal Inspection. No: Cyanosis, Edema Lower Extremity: Present: Normal Inspection. No: Edema Neurological: Present: GCS=15, CN II-XII Intact, Speech Normal Skin: Present: Warm, Normal Color Psychiatric: Present: Alert, Oriented x 3, Normal Insight, Normal Concentration <Eva Cid - Last Filed: 09/15/18 17:41> Vital Signs Temp Pulse Resp BP Pulse Ox 09/15/18 17:05 98.7 F 78 18 148/73 98 - Systems Exam Pupils: Present: Other (Visual Acuity: 20/20 in R eye, 20/30 in L eye. Small foreign body noted to L medial corneal surface. No dendrites noted.) <German Terry - Last Filed: 09/15/18 18:26> Disposition/Present on Arrival - Present on Arrival History of DVT/PE: No History of Uncontrolled Diabetes: No Urinary Catheter: No History of Decub. Ulcer: No History Surgical Site Infection Following: None <Eva Cid - Last Filed: 09/15/18 17:41> - Present on Arrival Any Indicators Present on Arrival: No - Disposition Have Diagnosis and Disposition been Completed?: Yes Disposition Time: 18:20 Patient Plan: Discharge <German Terry - Last Filed: 09/15/18 18:26> - Disposition Diagnosis: Foreign body in eye, Pterygium Disposition: HOME/ ROUTINE Condition: IMPROVED Discharge Instructions (ExitCare): Pterygium (DC), Foreign Body in Eye (DC) Print Language: NIUEAN Additional Instructions: Please follow up with your PCP in 3-5 days If possible, please follow up with your opthomologist Referrals: Awa Dee, MD [Primary Care Provider] - Follow up with primary Elian Estevez MD [Staff Provider] - Follow up with primary Forms: [employer] (Monegasque)
[2018-09-15 18:33] VITALS: BP 132/85; PULSE 75; TEMP 98; O2SAT 99
== END 2018-09-15 18:30 | disposition home or self-care (01) ==
LOC: ED 16:59
DX: T15.92XA Foreign body on external eye, part unspecified, left eye, initial encounter (principal); X58.XXXA Exposure to other specified factors, initial encounter; H11.002 Unspecified pterygium of left eye

== ENCOUNTER 2018-09-27 15:00 | Outpatient (CLI) | payer OTHER | END 2018-09-27 15:01 | disposition home or self-care (01) | LOC: LAB 15:00 ==

== ENCOUNTER → 2018-10-03 | Day surgery (SDC) | payer OTHER | LOC: SDS 06:59 ==

== ENCOUNTER → 2018-10-04 | Outpatient (CLI) | payer OTHER | LOC: PET-BROA 23:00 ==